=== PATIENT | male | born 1955 | race Hispanic/Latino ===

== ENCOUNTER 2019-11-11 09:24 | Emergency (ER) | payer OTHER ==
--- OUTSIDE RECORDS SUMMARY | 2019-11-11 09:27 | XMS REPORT ---
:1955 Author Organization eClinical[employer] Care Team Providers Name Role Phone BenitezJose Provider Role Unavailable Allergies, Adverse Reactions, Alerts Substance Reaction Event Type N.K.D.A. 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 Active Problem Mixed hyperlipidemia E78.2 Active Problem Somnolence, daytime R40.0 Active Problem Controlled type 2 diabetes mellitus E11.9 Active without complication, without long-term current use of insulin Problem Erectile dysfunction, unspecified N52.9 Active erectile dysfunction type Problem Body mass index (BMI) of 40.1 to Z68.41 Active 44.9 in adult Assessment Repetitive intrusions of sleep G47.9 Active Assessment Erectile dysfunction, unspecified N52.9 Active erectile dysfunction type Assessment Fatigue, unspecified type R53.83 Active Assessment Body mass index (BMI) of 40.1 to Z68.41 Active 44.9 in adult Assessment Somnolence, daytime R40.0 Active Medications Medication Code Code Instructions Start End Status Dosage System Date Date Lisinopril [facility] [id number] 2.5 MG Orally Active 1 tablet Once a day Atorvastatin ND 23257907679 20 MG Orally Active 1 tablet Calcium Once a day MetFORMIN HCl ND 06554724110 500 MG Orally Active 2 tablet ER Once a day meal Glimepiride ND 22201405660 4 MG Orally Active 1 tablet Once a day with breakfast or the first main meal of the day Cialis ND 11830705251 20 MG Orally Active 1 tablet once a day Results No Known Results Summary Purpose eClinicalWorks Submission
--- OUTSIDE RECORDS SUMMARY | 2019-11-11 09:27 | XMS REPORT ---
:1955 Author Organization [employer] Care Team Providers Name Role Phone Jose Benitez Provider Role Unavailable Allergies No Known Allergies Problems Problem Type Condition Code Onset Dates Condition Status Problem Repetitive intrusions of sleep G47.9 Active Problem Mixed hyperlipidemia E78.2 Active Problem Somnolence, daytime R40.0 Active Problem Controlled type 2 diabetes mellitus E11.9 Active without complication, without long-term current use of insulin Problem Erectile dysfunction, unspecified N52.9 Active erectile dysfunction type Problem Body mass index (BMI) of 40.1 to Z68.41 Active 44.9 in adult Medications No Known Medications Results No Known Results Summary Purpose eClinicalWorks Submission
[2019-11-11] MEDS ORDERED: ONDANSETRON 4 MG/2 ML VIAL ONE (10:31)
[2019-11-11] MEDS ORDERED: MORPHINE 4 MG/ML SYR ONE (10:31)
--- NOTE | 2019-11-11 10:32 | RAD REPORT ---
EXAM DESCRIPTION: CT - Stone Protocol - 11/11/2019 10:16 am CLINICAL HISTORY: Flank pain. left flank pain COMPARISON: Head C Spine Mpr Wo Con dated 11/07/2018No comparisons TECHNIQUE: Axial images were obtained without oral or IV contrast. Lack of contrast limits solid org an and vascular assessment. The ipxhe-dc-vian spans the entirety of the system partially obscuring uppermost abdomen and lung bases. Coronal reformatted images were obtained and reviewed. All CT scans are performed using dose optimization technique as appropriate and may include automated exposure control or mA/KV adjustment according to patient size. FINDINGS: The lower lung chapman are clear. Imaged portions of the liver and spleen show no suspicious findings on non-contrast imaging. The panc reas and adrenal glands are normal. No pathologic lymphadenopathy in the abdomen or pelvis. Cholelith iasis suspected. 3 mm calculus is present left UVJ resulting in mild left hydronephrosis. No bowel obstruction, free air, free fluid or abscess. Normal sized appendix containing small appendi colith.Small fat containing ventral hernia is No significant bony abnormality. Small bilateral fat containing inguinal hernias. IMPRESSION: 3 mm calculus left UVJ resulting mild left hydronephrosis.
[2019-11-11 10:36] LABS: Absolute Lymphocytes (CBC) 0.9 K/uL (0.7-4.9); Basophils % 0.6 % (0-1.3); Hematocrit 42.4 % (39.6-49.0); Lymphocytes % 9.5 % (15.3-44.8); MPV 7.9 fL (7.6-11.3); RBC Red Blood Cell Count 4.84 M/uL (4.33-5.43)
[2019-11-11 10:52] LABS: Albumin 3.7 g/dL (3.4-5.0); Bilirubin Direct 0.3 mg/dL (0-0.2); Bilirubin Total 1.2 mg/dL (0.2-1.0); Potassium 4.5 mmol/L (3.5-5.1); Protein, Total 6.9 g/dL (6.4-8.2)
[2019-11-11] MEDS ORDERED: KETOROLAC 30 MG/ML INJ ONE (11:48)
--- NOTE | 2019-11-11 12:37 | EDPHYS ---
Physician Documentation [facility] Name: Carlos Cassidy Jr Age: 64 yrs Sex: Male : 1955 Arrival Date: 11/11/2019 Time: 09:28 Bed 5 Private MD: [facility] ED Physician Evaristo Nesbitt HPI: 11/11 12:42 This 64 yrs old Male presents to ER via Ambulatory with complaints of kdr Abdominal Pain, Back Pain, Constipation, Vomiting. 12:42 The patient presents with pain that is acute. kdr 12:42 The patient presents with abdominal pain Left flank and radiates to LLQ. Onset: The kdr symptoms/episode began/occurred suddenly, this morning, at 02:30. The symptoms radiate to the left flank. Associated signs and symptoms: Pertinent positives: nausea and vomiting, Pertinent negatives: anorexia, blood in stools, chest pain, constipation, diarrhea, dysuria, fever, headache, hematuria, palpitations, shortness of breath, testicular pain, vomiting blood. The symptoms are described as achy, burning, crampy, vague. Modifying factors: The symptoms are alleviated by nothing, the symptoms are aggravated by nothing. Severity of pain: At its worst the pain was moderate severe incapacitating in the emergency department the pain has improved moderately. The patient has not experienced similar symptoms in the past. The patient has not recently seen a physician. Historical: - Allergies: 09:58 No Known Allergies; ph - Home Meds: 09:58 metformin Oral [Active]; Glimepiride Oral [Active]; Lisinopril Oral [Active]; ph atorvastatin oral oral [Active]; - PMHx: 09:58 Diabetes - NIDDM; Hyperlipidemia; Hypertension; ph - Immunization history:: Adult Immunizations unknown. - Coronavirus screen:: The patient has NOT traveled to [place], [place], or [place] in the past 14 days. The patient has NOT had contact with known/suspected case of Coronavirus?. - Social history:: Smoking status: Patient denies any tobacco usage or history of. - Ebola Screening: : No symptoms or risks identified at this time. ROS: 12:42 Constitutional: Negative for fever, chills, and weight loss, Eyes: Negative for injury, kdr pain, redness, and discharge, Neck: Negative for injury, pain, and swelling, Cardiovascular: Negative for chest pain, palpitations, and edema, Respiratory: Negative for shortness of breath, cough, wheezing, and pleuritic chest pain, : Negative for injury, bleeding, discharge, and swelling, MS/Extremity: Negative for injury and deformity, Skin: Negative for injury, rash, and discoloration, Neuro: Negative for headache, weakness, numbness, tingling, and seizure activity. Psych: Negative for depression, anxiety, suicide ideation, homicidal ideation, and hallucinations, Allergy/Immunology: Negative for hives, rash, and allergies, Endocrine: Negative for neck swelling, polydipsia, polyuria, polyphagia, and marked weight changes, Hematologic/Lymphatic: Negative for swollen nodes, abnormal bleeding, and unusual bruising. 12:42 Abdomen/GI: Positive for abdominal pain, nausea and vomiting, abdominal cramps, Negative for vomiting, diarrhea, constipation, black/tarry stool, rectal pain. Exam: 12:42 Constitutional: This is a well developed, well nourished patient who is awake, alert, kdr and in no acute distress. Head/Face: Normocephalic, atraumatic. Eyes: Pupils equal round and reactive to light, extra-ocular motions intact. Lids and lashes normal. Conjunctiva and sclera are non-icteric and not injected. Cornea within normal limits. Periorbital areas with no swelling, redness, or edema. Neck: Trachea midline, no thyromegaly or masses palpated, and no cervical lymphadenopathy. Supple, full range of motion without nuchal rigidity, or vertebral point tenderness. No Meningismus. Chest/axilla: Normal chest wall appearance and motion. Nontender with no deformity. No lesions are appreciated. Cardiovascular: Regular rate and rhythm with a normal S1 and S2. No gallops, murmurs, or rubs. Normal PMI, no JVD. No pulse deficits. Respiratory: Lungs have equal breath sounds bilaterally, clear to auscultation and percussion. No rales, rhonchi or wheezes noted. No increased work of breathing, no retractions or nasal flaring. Back: No spinal tenderness. No costovertebral tenderness. Full range of motion. Skin: Warm, dry with normal turgor. Normal color with no rashes, no lesions, and no evidence of cellulitis. MS/ Extremity: Pulses equal, no cyanosis. Neurovascular intact. Full, normal range of motion. Neuro: Awake and alert, GCS 15, oriented to person, place, time, and situation. Cranial nerves II-XII grossly intact. Motor strength 5/5 in all extremities. Sensory grossly intact. Cerebellar exam normal. Normal gait. Psych: Awake, alert, with orientation to person, place and time. Behavior, mood, and affect are within normal limits. 12:42 Abdomen/GI: Inspection: abdomen appears normal, obese Bowel sounds: active, all quadrants, Palpation: soft, mild abdominal tenderness, in the anterior aspect of left lateral abdomen and posterior aspect of left lateral abdomen. Vital Signs: 09:53 BP 125 / 78; Pulse 64; Resp 18; Temp 98.0; Pulse Ox 94% on R/A; Weight 127.01 kg; ph Height 5 ft. 7 in. (170.18 cm); Pain 4/10; 11:00 BP 118 / 74; Pulse 66; Resp 18; Pulse Ox 95% on R/A; ph 12:15 BP 124 / 70; Pulse 62; Resp 18; Temp 97.0; Pulse Ox 96% on R/A; ph 09:53 Body Mass Index 43.85 (127.01 kg, 170.18 cm) ph MDM: 12:[address] [facility] 12:42 Data reviewed: vital signs, nurses notes, lab test result(s), radiologic studies. kdr Counseling: I had a detailed discussion with the patient and/or guardian regarding: the historical points, exam findings, and any diagnostic results supporting the discharge/admit diagnosis, lab results, radiology results, the need for outpatient follow up. 11/11 10:04 Order name: Basic Metabolic Panel; Complete Time: 11: [facility] 11/11 10:04 Order name: CBC with Diff; Complete Time: 11: [facility] 11/11 10:04 Order name: Creatinine for Radiology; Complete Time: 11: [facility] 11/11 10:04 Order name: Hepatic Function; Complete Time: 11: [facility] 11/11 10:04 Order name: Lipase; Complete Time: 11: [facility] 11/11 12:31 Order name: Urine Dipstick--Ancillary (enter results) 11/11 10:04 Order name: IV Saline Lock; Complete Time: 10:39 [facility] 11/11 10:04 Order name: Labs collected and sent; Complete Time: 10:39 kdr 11/11 10:04 Order name: CT Stone Protocol; Complete Time: 11:11 kdr 11/11 10:05 Order name: Urine Dipstick-Ancillary (obtain specimen); Complete Time: 12:35 kdr Administered Medications: 10:28 Drug: Zofran 4 mg Route: IVP; Site: right antecubital; ph 12:52 Follow up: Response: No adverse reaction ph 10:30 Drug: morphine 4 mg Route: IVP; Site: right antecubital; ph 10:45 Follow up: Response: No adverse reaction; Pain is decreased; RASS: Alert and Calm (0) ph 11:50 Drug: TORadol - Ketorolac 15 mg Route: IVP; Site: right antecubital; ph 12:52 Follow up: Response: No adverse reaction; Pain is decreased ph Disposition: 11/11/19 12:36 Discharged to Home. Impression: 3 mm left UVJ kidney stone. - Condition is Stable. - Prescriptions for Tylenol- Codeine #3 300-30 mg Oral Tablet - take 2 tablet by ORAL route every 6 hours As needed; 30 tablet. Zofran 4 mg Oral Tablet - take 1 tablet by ORAL route every 4-6 hours As needed; 12 tablet. Flomax 0.4 mg Oral Capsule, Sust. Release 24 hr - take 1 capsule by ORAL route once daily 1/2 hour following the same meal each day; 30 capsule. Bactrim DS 800- 160 mg Oral Tablet - take 1 tablet by ORAL route every 12 hours for 3 days; 6 tablet. - Medication Reconciliation Form, Thank You Letter, Antibiotic Education, Prescription Opioid Use form. - Follow up: Jose Benitez DO; When: 1 - 2 days; Reason: If symptoms return, Further diagnostic work-up, Recheck today's complaints, Continuance of care, Re-evaluation by your physician. Follow up: Ramses Wilson MD; When: 2 - 3 days; Reason: If symptoms return, Further diagnostic work-up, Recheck today's complaints, Continuance of care, Re-evaluation by your physician. Signatures: Dispatcher [employer] Evaristo Townsend MD MD kdr Winnie Maciel RN RN ph Corrections: (The following items were deleted from the chart) 12:53 12:36 11/11/2019 12:36 Discharged to Home. Impression: 3 mm left UVJ kidney stone. ph Condition is Stable. Forms are Medication Reconciliation Form, Thank You Letter, Antibiotic Education, Prescription Opioid Use. Follow up: Jose Benitez; When: 1 - 2 days; Reason: If symptoms return, Further diagnostic work-up, Recheck today's complaints, Continuance of care, Re-evaluation by your physician. Follow up: Ramses Wilson; When: 2 - 3 days; Reason: If symptoms return, Further diagnostic work-up, Recheck today's complaints, Continuance of care, Re-evaluation by your physician. kdr
--- NOTE | 2019-11-11 12:37 | ER ---
Nurse's Notes [facility] Name: Carlos Cassidy Jr Age: 64 yrs Sex: Male : 1955 Arrival Date: 11/11/2019 Time: 09:28 Bed 5 Private MD: Jsoe Benitez Diagnosis: 3 mm left UVJ kidney stone Presentation: 11/11 09:51 Presenting complaint: Patient states: L lower back pain radiating to flank and LLQ that ph began at 0200 this morning, also reports sensation to have BM but unable to go, denies hx of constipation, also reports N/V when pain reaches 10/10, denies difficulty urinating or fever. Transition of care: patient was not received from another setting of care. Onset of symptoms was November 11, 2019. Risk Assessment: Do you want to hurt yourself or someone else? Patient reports no desire to harm self or others. Initial Sepsis Screen: Does the patient meet any 2 criteria? No. Patient's initial sepsis screen is negative. Does the patient have a suspected source of infection? No. Patient's initial sepsis screen is negative. Care prior to arrival: None. 09:51 Method Of Arrival: Ambulatory ph 09:51 Acuity: ABDI 3 ph Historical: - Allergies: 09:58 No Known Allergies; ph - Home Meds: 09:58 metformin Oral [Active]; Glimepiride Oral [Active]; Lisinopril Oral [Active]; ph atorvastatin oral oral [Active]; - PMHx: 09:58 Diabetes - NIDDM; Hyperlipidemia; Hypertension; ph - Immunization history:: Adult Immunizations unknown. - Coronavirus screen:: The patient has NOT traveled to [place], [place], or [place] in the past 14 days. The patient has NOT had contact with known/suspected case of Coronavirus?. - Social history:: Smoking status: Patient denies any tobacco usage or history of. - Ebola Screening: : No symptoms or risks identified at this time. Screenin:01 Abuse screen: Denies threats or abuse. Denies injuries from another. Nutritional ph screening: No deficits noted. Tuberculosis screening: No symptoms or risk factors identified. Fall Risk None identified. Assessment: 09:58 General: Appears in no apparent distress. comfortable, obese, well groomed, Behavior is ph calm, cooperative, appropriate for age, Denies fever, feeling ill. Pain: Complains of pain in left low back Pain radiates to left flank and LLQ. Neuro: Level of Consciousness is awake, alert, obeys commands, Oriented to person, place, time, situation. Cardiovascular: Capillary refill < 3 seconds in bilateral fingers Patient's skin is warm and dry. Respiratory: Airway is patent Respiratory effort is even, unlabored, Respiratory pattern is regular, symmetrical. GI: Bowel sounds present X 4 quads. Abd is soft and non tender X 4 quads. Reports nausea. : Reports pain in left flank(s), lower quadrant(s) in lower back Denies inability to void. Derm: Skin is intact, is healthy with good turgor, Skin is pink, warm \T\ dry. Musculoskeletal: Circulation, motion, and sensation intact. Range of motion: intact in all extremities. 10:59 Reassessment: Patient appears in no apparent distress at this time. Patient and/or ph family updated on plan of care and expected duration. Pain level reassessed. Patient is alert, oriented x 3, equal unlabored respirations, skin warm/dry/pink. Pt reports that pain and nausea have improved after medication, awaiting lab and radiology results. 11:45 Reassessment: Patient appears in no apparent distress at this time. Patient and/or ph family updated on plan of care and expected duration. Pain level reassessed. Patient is alert, oriented x 3, equal unlabored respirations, skin warm/dry/pink. 12:51 Reassessment: Patient appears in no apparent distress at this time. Patient and/or ph family updated on plan of care and expected duration. Pain level reassessed. Patient is alert, oriented x 3, equal unlabored respirations, skin warm/dry/pink. Vital Signs: 09:53 BP 125 / 78; Pulse 64; Resp 18; Temp 98.0; Pulse Ox 94% on R/A; Weight 127.01 kg; ph Height 5 ft. 7 in. (170.18 cm); Pain 4/10; 11:00 BP 118 / 74; Pulse 66; Resp 18; Pulse Ox 95% on R/A; ph 12:15 BP 124 / 70; Pulse 62; Resp 18; Temp 97.0; Pulse Ox 96% on R/A; ph 09:53 Body Mass Index 43.85 (127.01 kg, 170.18 cm) ph ED Course: 09:28 Patient arrived in ED. es 09:29 Jose Benitez DO is Private Physician. es 09:35 Evaristo Nesbitt MD is Attending Physician. kdr 09:51 Winnie Maciel, RN is Primary Nurse. ph 09:53 Triage completed. ph 09:58 Arm band placed on Patient placed in an exam room, on a stretcher. ph 10:01 Patient has correct armband on for positive identification. Bed in low position. Call ph light in reach. Side rails up X 1. Pulse ox on. NIBP on. Door closed. Noise minimized. Warm blanket given. 10:15 CT completed. Patient tolerated procedure well. Patient moved back from CT. bq 10:16 CT Stone Protocol In Process Unspecified. EDMS 10:25 Initial lab(s) drawn, by me, sent to lab. Inserted saline lock: 22 gauge in right ph antecubital area, using aseptic technique. Blood collected. 12:33 Jose Benitez DO is Referral Physician. kdr 12:34 Ramses Wilson MD is Referral Physician. kdr 12:52 No provider procedures requiring assistance completed. IV discontinued, intact, ph bleeding controlled, No redness/swelling at site. Pressure dressing applied. Administered Medications: 10:28 Drug: Zofran 4 mg Route: IVP; Site: right antecubital; ph 12:52 Follow up: Response: No adverse reaction ph 10:30 Drug: morphine 4 mg Route: IVP; Site: right antecubital; ph 10:45 Follow up: Response: No adverse reaction; Pain is decreased; RASS: Alert and Calm (0) ph 11:50 Drug: TORadol - Ketorolac 15 mg Route: IVP; Site: right antecubital; ph 12:52 Follow up: Response: No adverse reaction; Pain is decreased ph Outcome: 12:36 Discharge ordered by . kdr 12:53 Discharged to home ambulatory, with significant other. ph 12:53 Condition: good 12:53 Discharge instructions given to patient, Instructed on discharge instructions, follow up and referral plans. medication usage, Demonstrated understanding of instructions, follow-up care, medications, Prescriptions given X 4. 12:53 Patient left the ED. ph Signatures: Dispatcher [employer] EDMS Rittger, Evaristo, Radha Campbell MD, Betty bq Hall, Patricia, RN RN ph
[2019-11-11 13:00] LABS: Urine Blood 1+ (NEG); Urine Glucose NEGATIVE (NEG); Urine Protein NEGATIVE (NEG); Urine Specific Gravity 1.025 (1.005-1.030)
[2019-11-11 13:07] VITALS: BP 124/70; TEMP 97; O2SAT 96
== END 2019-11-11 12:53 | disposition home or self-care (01) ==
LOC: ER 09:24
DX: N13.2 Hydronephrosis with renal and ureteral calculous obstruction (principal); E11.9 Type 2 diabetes mellitus without complications; I10 Essential (primary) hypertension; E78.5 Hyperlipidemia, unspecified
CPT/HCPCS: 85025; 80048; 36415; 80076; 81003; 83690; 76377; 74176; 96375; 96374; 99284; J2405

== ENCOUNTER 2023-02-15 07:57 | Day surgery (SDC) | payer OTHER ==
[2023-02-15] MEDS ORDERED: NA CHLORIDE 0.9% 1,000 ML ONE (08:19)
[2023-02-15] MEDS ORDERED: propofoL 200 MG/20 ML VIAL IV ONE ×2 (08:23)
[2023-02-15 10:40] VITALS: TEMP 97.1
[2023-02-15 10:53] VITALS: BP 140/76; O2SAT 95
== END 2023-02-15 10:00 | disposition home or self-care (01) ==
LOC: OR 07:57
PROVIDERS: ATTEND Surgery
PROC: 0DJD8ZZ Inspection of Lower Intestinal Tract, Via Natural or Artificial Opening Endoscopic (ICD-10-PCS; principal; 2023-02-15 09:00)
DX: Z12.11 Encounter for screening for malignant neoplasm of colon (principal); K42.9 Umbilical hernia without obstruction or gangrene; K64.4 Residual hemorrhoidal skin tags; K64.8 Other hemorrhoids; K57.30 Diverticulosis of large intestine without perforation or abscess without bleeding; Z86.010 Personal history of colon polyps
CPT/HCPCS: 82947; J2704 ×2; J7030; G0105